=== PATIENT | female | born 1950 | race Caucasian/White ===

== ENCOUNTER 2017-10-02 16:19 | Inpatient (IN) | payer OTHER ==
[~2017-10-02] VITALS: Ht 167.6 cm; Wt 59.9 kg
[~2017-10-02 16:19] MED LIST: CIPRO500 MG PO; FLAGYL500 MG PO; PERCOCET 5/31 TABLET PO; ZOFRAN4 MG PO
[2017-10-02 17:12] LABS: HEMATOCRIT 39.8 % (36.0-46.0); HEMOGLOBIN 13.9 G/DL (11.9-15.5); MCH 31.5 PG (29.0-34.0); MCHC 34.9 G/DL (30.0-36.0); MCV 90.2 FL (83-99); RBC DIS.WIDTH-CV 12.4 % (11.8-14.6); RBC DIS.WIDTH-SD 41.1 % (39-53); RED BLOOD COUNT 4.41 M/uL (3.80-5.20); WHITE BLOOD COUNT 10.8 K/uL (4.1-10.2)
[2017-10-02 17:23] LABS: CHLORIDE 102 mEq/L (99-109); POTASSIUM 3.8 mEq/L (3.7-5.4); SODIUM 141 mEq/L (136-147)
[2017-10-02 17:25] LABS: GLUCOSE 143 mg/dL (70-99)
[2017-10-02 17:29] LABS: CREATININE 0.9 mg/dL (0.6-1.3); GFR ESTIMATE (CALCULATED) > 59 mL/min/
[2017-10-02 17:30] LABS: UREA NITROGEN (BUN) 15 mg/dL (9-23)
[2017-10-02 18:11] LABS: PLAT.SUFFICIENCY ADEQUATE; PLATELET COUNT 164 K/uL (156-360)
[2017-10-02] MEDS ORDERED: PERCOCET 10/1 TABLET PO (19:10)
[2017-10-02] MEDS ORDERED: LEVOTHYROXINE88 MCG PO (19:11)
[2017-10-02] MEDS ORDERED: ZOCOR40 MG PO (19:12)
[2017-10-02] MEDS ORDERED: RELAFEN500 M1 PO (19:13)
[2017-10-02] MEDS ORDERED: PANTOPRAZOLE SO40 MG PO (19:20)
[2017-10-02 22:04] LABS: ALBUMIN 4.2 g/dL (3.2-4.8)
[2017-10-02 22:07] LABS: TOTAL PROTEIN 7.6 g/dL (6.4-8.3)
[2017-10-02 22:08] LABS: TOTAL BILIRUBIN 0.3 mg/dL (0.0-1.0)
[2017-10-02 22:09] LABS: ALKALINE PHOSPHATASE 60 IU/L (3-129)
[2017-10-02 22:12] LABS: AST (GOT) 23 IU/L (2-34); DIRECT BILIRUBIN 0.2 mg/dL (0.0-0.3)
[2017-10-02 22:13] LABS: ALT (GPT) 6 IU/L (3-49)
[2017-10-03] VITALS (7 sets, daily range): BP systolic 119–129; BP diastolic 59–71
[2017-10-03 06:11] LABS: CHLORIDE 108 MEQ/L (99-109); CREATININE 0.8 MG/DL (0.6-1.3); GFR ESTIMATE (CALCULATED) > 59 mL/min/; GLUCOSE 165 mg/dL (70-99); POTASSIUM 3.9 MEQ/L (3.7-5.4); SODIUM 140 MEQ/L (136-147); UREA NITROGEN (BUN) 15 mg/dL (9-23)
[2017-10-03 06:27] LABS: BASOPHIL (%) 0.1 % (0-1); EOSINOPHIL (%) 0 % (0-5); HEMATOCRIT 35.9 % (36.0-46.0); HEMOGLOBIN 12.3 G/DL (11.9-15.5); IMMATURE GRANULOCYTE (%) 0.3 % (0.0-0.7); LYMPHOCYTE (%) 16.6 % (15-42); LYMPHOCYTE COUNT 1.8 K/uL (1.0-2.8); MCH 31.1 PG (29.0-34.0); MCHC 34.3 G/DL (30.0-36.0); MCV 90.7 FL (83-99); MONOCYTE (%) 1.7 % (3-12); MONOCYTE COUNT 0.2 K/uL (0-0.8); NEUTROPHIL (%) 81.3 % (45-76); NEUTROPHIL COUNT 8.7 K/uL (1.8-6.4); PLATELET COUNT 150 K/uL (156-360); RBC DIS.WIDTH-CV 12.5 % (11.8-14.6); RBC DIS.WIDTH-SD 41.5 % (39-53); RED BLOOD COUNT 3.96 M/uL (3.80-5.20); WHITE BLOOD COUNT 10.7 K/uL (4.1-10.2)
[2017-10-04 04:15] VITALS: BP 133/74
[2017-10-04 07:40] VITALS: BP 127/57
[2017-10-04 11:05] VITALS: BP 123/73
[2017-10-04 16:00] VITALS: BP 115/65
[2017-10-04 19:34] VITALS: BP 139/74
[2017-10-04 23:24] VITALS: BP 121/59
[2017-10-05 04:07] VITALS: BP 124/58
[2017-10-05 07:25] VITALS: BP 156/75
[2017-10-05] MEDS ORDERED: PROAIR HFA8.5 GM IH (10:36)
[2017-10-05] MEDS ORDERED: ALBUTEROL2.5 MG/3 M IH ×2 (10:36→11:25)
[2017-10-05] MEDS ORDERED: LEVAQUIN750 MG PO (10:36)
[2017-10-05] MEDS ORDERED: PREDNISONE10 MG PO (10:37)
== END 2017-10-05 12:15 | disposition home or self-care (01) | DRG 190 ==
LOC: EME 16:19 → EDOF 20:58 → 4SOUTH 20:58 → ENRESERV 21:02 → 4SOUTH 10-03 01:15 → ENPENDDIS 10-05 → 4SOUTH 10-05 12:15
PROVIDERS: Hospitalist
DX: J44.0 Chronic obstructive pulmonary disease with (acute) lower respiratory infection (principal); J18.9 Pneumonia, unspecified organism; J44.1 Chronic obstructive pulmonary disease with (acute) exacerbation; E03.9 Hypothyroidism, unspecified; G89.29 Other chronic pain; M54.9 Dorsalgia, unspecified; K21.9 Gastro-esophageal reflux disease without esophagitis; G43.909 Migraine, unspecified, not intractable, without status migrainosus; R92.8 Other abnormal and inconclusive findings on diagnostic imaging of breast; F17.210 Nicotine dependence, cigarettes, uncomplicated
CPT/HCPCS: 71046; 71275; 80048; 80076; 85025; 85027; 87040; 87070; 87205; 87449; 94640; 94640 76; 94799; 99202; 99281; 99285; J0295; J0456; J0696; J1650; J2930; J7030; J7050